=== PATIENT | male | born 1970 | race African-American/Black ===

== ENCOUNTER 2017-06-16 14:13 | Emergency (ER) | payer OTHER ==
[2017-06-16 14:22] VITALS: BP 175/102
[2017-06-16] MEDS ORDERED: METHOCARBAMOL 750 MG TABLET PO ONE (14:40)
[2017-06-16] MEDS ORDERED: IBUPROFEN 800 MG TABLET PO ONE (14:40)
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
== END 2017-06-16 14:56 | disposition home or self-care (01) ==
LOC: ER 14:13
DX: S16.1XXA Strain of muscle, fascia and tendon at neck level, initial encounter (principal); M79.602 Pain in left arm; M54.2 Cervicalgia; V87.7XXA Person injured in collision between other specified motor vehicles (traffic), initial encounter
CPT/HCPCS: 99283; J3490

== ENCOUNTER 2019-08-16 09:02 | Emergency (ER) | payer OTHER ==
[2019-08-16] MEDS ORDERED: ACETAMINOPHEN 325 MG TABLET PO ONE (09:21)
[2019-08-16] MEDS ORDERED: LIDOCAINE 5% (700 MG) TRANSDERMAL ADH..PATCH TP ONE (09:22)
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
[2019-08-16 10:47] VITALS: BP 147/85
== END 2019-08-16 10:47 | disposition home or self-care (01) ==
LOC: ER 09:02
DX: S13.9XXA Sprain of joints and ligaments of unspecified parts of neck, initial encounter (principal); M54.42 Lumbago with sciatica, left side; M79.602 Pain in left arm; M79.605 Pain in left leg; R20.0 Anesthesia of skin; R20.2 Paresthesia of skin; R53.1 Weakness; V49.40XA Driver injured in collision with unspecified motor vehicles in traffic accident, initial encounter; I10 Essential (primary) hypertension; E11.9 Type 2 diabetes mellitus without complications
CPT/HCPCS: 72128; 72131; 99283